=== PATIENT | female | born 1975 | race Caucasian/White ===

== ENCOUNTER 2018-11-17 02:19 | Emergency (ER) | payer BC ==
--- NOTE | 2018-11-17 03:02 | EDPHYS ---
Physician Documentation [facility] Name: Oneida Alegre Age: 43 yrs Sex: Female : 1975 Arrival Date: 11/17/2018 Time: 02:23 Bed 13 Private MD: Karan Laird ED Physician Manuelito Mac HPI: 11/17 02:50 This 43 yrs old Female presents to ER via Ambulatory with complaints of Ear ps1 Pain. 02:50 onset was 3 days ago. Now has pain and decreased hearing. Feels like a migraine in my ps1 ear. Pain rated as severe. No fever. No discharge. . 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 - Social history:: Smoking status: Patient uses tobacco products, denies chronic smoking, but will smoke occasionally, Patient uses alcohol, occasionally. - Ebola Screening: : No symptoms or risks identified at this time. ROS: 02:50 Constitutional: Negative for fever, chills, and weight loss, Eyes: Negative for injury, ps1 pain, redness, and discharge, Neck: Negative for injury, pain, and swelling, Cardiovascular: Negative for chest pain, palpitations, and edema, Respiratory: Negative for shortness of breath, cough, wheezing, and pleuritic chest pain, Abdomen/GI: Negative for abdominal pain, nausea, vomiting, diarrhea, and constipation, MS/Extremity: Negative for injury and deformity, Skin: Negative for injury, rash, and discoloration, Neuro: Negative for headache, weakness, numbness, tingling, and seizure. 02:50 ENT: Positive for ear pain. Exam: 02:50 Constitutional: This is a well developed, well nourished patient who is awake, alert, ps1 and in no acute distress. Head/Face: Normocephalic, atraumatic. Eyes: Pupils equal round and reactive to light, extra-ocular motions intact. Lids and lashes normal. Conjunctiva and sclera are non-icteric and not injected. Chest/axilla: Normal chest wall appearance and motion. Nontender with no deformity. No lesions are appreciated. Cardiovascular: Regular rate and rhythm. No gallops, murmurs, or rubs. Normal PMI, no JVD. No pulse deficits. Respiratory: Lungs have equal breath sounds bilaterally, clear to auscultation and percussion. No rales, rhonchi or wheezes noted. No increased work of breathing, no retractions or nasal flaring. Abdomen/GI: Soft, non-tender, with normal bowel sounds. No distension or tympany. No guarding or rebound. No evidence of tenderness throughout. MS/ Extremity: Pulses equal, no cyanosis. Neurovascular intact. Full, normal range of motion. Neuro: Awake and alert, GCS 15, oriented to person, place, time, and situation. Cranial nerves II-XII grossly intact. Sensory grossly intact. 02:50 ENT: External ear(s): pain with movement, that is moderate, of the right ear canal, swelling, that is moderate, of the right ear canal, Ear canal(s): erythema, that is moderate, of the right canal. Vital Signs: 02:24 BP 141 / 99; Pulse 81; Resp 16; Temp 98.2(O); Pulse Ox 98% on R/A; Weight 88.45 kg (R); jb4 Height 5 ft. 0 in. (152.40 cm) (R); Pain 8/10; 02:24 Body Mass Index 38.08 (88.45 kg, 152.40 cm) jb4 MDM: 02:50 Data reviewed: vital signs, nurses notes, and as a result, I will discharge patient. ps1 03:01 Patient medically screened. ps1 Administered Medications: 03:10 Drug: Decadron 10 mg Route: PO; jb4 03:25 Follow up: Response: No adverse reaction; Medication administered at discharge. jb4 03:10 Drug: TORadol 30 mg Route: IM; Site: right gluteus; jb4 03:26 Follow up: Response: No adverse reaction; Medication administered at discharge. jb4 Disposition: 11/17/18 03:01 Discharged to Home. Impression: Other otitis externa, right ear. - Condition is Stable. - Discharge Instructions: Otitis Externa. - Prescriptions for Cortisporin- TC 3.3-3-10-0.5 mg/mL Otic Suspension - instill 4 drop by OTIC route every 6 hours; 1 bottle. - Medication Reconciliation Form, Thank You Letter, Antibiotic Education, Prescription Opioid Use form. - Follow up: Karan Laird DO; When: 2 - 3 days; Reason: Recheck today's complaints, Continuance of care, Re-evaluation by your physician. Follow up: Emergency Department; When: As needed; Reason: Fever > 102 F, Worsening of condition. - Problem is new. - Symptoms are unchanged. Signatures: Zen Delgado RN RN jb4 Manuelito Mac MD MD ps1 Corrections: (The following items were deleted from the chart) 03:01 03:01 11/17/2018 03:01 Discharged to Home. Impression: right otitis media. Condition is ps1 Stable. Forms are Medication Reconciliation Form, Thank You Letter, Antibiotic Education, Prescription Opioid Use. Follow up: Karan Laird; When: 2 - 3 days; Reason: Recheck today's complaints, Continuance of care, Re-evaluation by your physician. Follow up: Emergency Department; When: As needed; Reason: Fever > 102 F, Worsening of condition. Problem is new. Symptoms are unchanged. ps1 03:26 03:01 11/17/2018 03:01 Discharged to Home. Impression: Other otitis externa, right ear. jb4 Condition is Stable. Forms are Medication Reconciliation Form, Thank You Letter, Antibiotic Education, Prescription Opioid Use. Follow up: Karan Laird; When: 2 - 3 days; Reason: Recheck today's complaints, Continuance of care, Re-evaluation by your physician. Follow up: Emergency Department; When: As needed; Reason: Fever > 102 F, Worsening of condition. Problem is new. Symptoms are unchanged. ps1
--- NOTE | 2018-11-17 03:02 | ER ---
Nurse's Notes [facility] Name: Oneida Alegre Age: 43 yrs Sex: Female : 1975 Arrival Date: 11/17/2018 Time: 02:23 Bed 13 Private MD: Karan Laird Diagnosis: Other otitis externa, right ear Presentation: 11/17 02:24 Method Of Arrival: Ambulatory jb4 02:24 Presenting complaint: Patient states: My right ear has been hurting for the past 3 jb4 days, has been getting worse. It started off as a dull ache and now it feels like a have a migraine centered in my ear. Transition of care: patient was not received from another setting of care. Onset of symptoms was November 14, 2018. Risk Assessment: Do you want to hurt yourself or someone else? Patient reports no desire to harm self or others. Initial Sepsis Screen: Does the patient meet any 2 criteria? No. Patient's initial sepsis screen is negative. Does the patient have a suspected source of infection? No. Patient's initial sepsis screen is negative. Care prior to arrival: None. 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 - Social history:: Smoking status: Patient uses tobacco products, denies chronic smoking, but will smoke occasionally, Patient uses alcohol, occasionally. - Ebola Screening: : No symptoms or risks identified at this time. Screenin:54 Abuse screen: Denies threats or abuse. Nutritional screening: No deficits noted. jb4 Tuberculosis screening: No symptoms or risk factors identified. Fall Risk None identified. Assessment: 02:51 General: Appears in no apparent distress. uncomfortable, Behavior is calm, cooperative, jb4 appropriate for age. Pain: Complains of pain in right ear Pain radiates to right side of head Pain currently is 8 out of 10 on a pain scale. Quality of pain is described as radiating, sharp, shooting, stabbing, Pain began 2-3 days ago. Is continuous. Neuro: Level of Consciousness is awake, alert, obeys commands, Oriented to person, place, time, situation. Cardiovascular: Patient's skin is warm and dry. Respiratory: Airway is patent Respiratory effort is even, unlabored, Respiratory pattern is regular, symmetrical. GI: No signs and/or symptoms were reported involving the gastrointestinal system. : No signs and/or symptoms were reported regarding the genitourinary system. EENT: Ear canal clear on right ear Ear is reddened . Reports pain in right ear. Derm: Skin is intact, Skin is pink, warm \T\ dry. Musculoskeletal: Circulation, motion, and sensation intact. Vital Signs: 02:24 BP 141 / 99; Pulse 81; Resp 16; Temp 98.2(O); Pulse Ox 98% on R/A; Weight 88.45 kg (R); jb4 Height 5 ft. 0 in. (152.40 cm) (R); Pain 8/10; 02:24 Body Mass Index 38.08 (88.45 kg, 152.40 cm) jb4 ED Course: 02:23 Patient arrived in ED. es 02:23 Karan Laird DO is Private Physician. es 02:24 Arm band placed on left wrist. jb4 02:35 Zen Delgado, RN is Primary Nurse. jb4 02:36 Triage completed. jb4 02:45 Manuelito Mac MD is Attending Physician. ps1 02:54 Patient has correct armband on for positive identification. Bed in low position. Call jb4 light in reach. Side rails up X 1. Pulse ox on. NIBP on. 02:55 No provider procedures requiring assistance completed. Patient did not have IV access jb4 during this emergency room visit. 02:59 Karan Laird DO is Referral Physician. ps1 Administered Medications: 03:10 Drug: Decadron 10 mg Route: PO; jb4 03:25 Follow up: Response: No adverse reaction; Medication administered at discharge. jb4 03:10 Drug: TORadol 30 mg Route: IM; Site: right gluteus; jb4 03:26 Follow up: Response: No adverse reaction; Medication administered at discharge. jb4 Outcome: 03:01 Discharge ordered by . ps1 03:23 Discharged to home ambulatory, with family. jb4 03:23 Condition: stable 03:23 Discharge instructions given to patient, family, Instructed on discharge instructions, follow up and referral plans. medication usage, Demonstrated understanding of instructions, follow-up care, medications, Prescriptions given X 1. 03:26 Patient left the ED. jb4 Signatures: An Carbajal James, RN RN jb4 Manuelito Mac MD MD ps1
[2018-11-17] MEDS ORDERED: KETOROLAC 30 MG/ML INJ ONE (03:19)
[2018-11-17] MEDS ORDERED: DEXAMETHASONE 4 MG TAB ONE (03:19)
== END 2018-11-17 03:26 | disposition home or self-care (01) ==
LOC: ER 02:19
DX: H60.8X1 Other otitis externa, right ear (principal); E03.9 Hypothyroidism, unspecified; Z72.0 Tobacco use
CPT/HCPCS: 96372; 99283